=== PATIENT | female | born 1990 ===

== ENCOUNTER → 2018-01-11 | Outpatient (CLI) | payer BC | LOC: LAB EV 19:20 → LAB SHORT 19:20 | DX: B65.1 Schistosomiasis due to Schistosoma mansoni [intestinal schistosomiasis] (principal) | CPT/HCPCS: 87177; 87209 ==

== ENCOUNTER → 2018-01-12 | Outpatient (CLI) | payer BC | LOC: LAB SHORT 18:30 → LAB EV 18:30 | DX: B65.1 Schistosomiasis due to Schistosoma mansoni [intestinal schistosomiasis] (principal) | CPT/HCPCS: 87177; 87209 ==

== ENCOUNTER → 2018-01-17 | Outpatient (CLI) | payer BC ==
[2018-01-20 19:08] LABS: CHLAMYDIA BY NAA Negative (Negative); GONOCOCCUS BY NAA Negative (Negative); TRICH VAG BY NAA Negative (Negative)
== END ==
LOC: LAB SHORT 15:49 → LAB EV 15:49
PROVIDERS: Nurse Practitioner Family
DX: Z01.419 Encounter for gynecological examination (general) (routine) without abnormal findings (principal); Z72.51 High risk heterosexual behavior
CPT/HCPCS: 87491; 87591; 87661; G0145

== ENCOUNTER → 2021-06-10 | Outpatient (CLI) | payer BC | END | disposition home or self-care (01) | LOC: LAB SHORT 16:45 | PROVIDERS: Physician Assistant | DX: Z01.419 Encounter for gynecological examination (general) (routine) without abnormal findings (principal) | CPT/HCPCS: G0145 ==

== ENCOUNTER → 2023-08-10 | Outpatient (CLI) | payer OTHER ==
[2023-08-18 22:11] LABS: HPV HIGH RISK BY TMA Not Detected; HPV SOURCE Cervical
== END ==
LOC: LAB 16:30 → LAB SHORT 16:30
PROVIDERS: Physician Assistant
DX: Z01.419 Encounter for gynecological examination (general) (routine) without abnormal findings (principal)
CPT/HCPCS: 87624; G0123